=== PATIENT | male | born 1930 | race Caucasian/White ===

== ENCOUNTER 2017-08-11 19:24 | Inpatient (IN) | payer MEDICARE ==
[2017-08-11] MEDS ORDERED: Ondansetron HCl/PF 4 MG/2 ML Vial ONE (19:41)
[2017-08-11 19:51] LABS: #Eosinphils 0.1 thou/uL (0.0-0.7); #Lymphocytes 0.8 thou/uL (1.20-3.40); #Monocytes 0.8 thou/uL (0.11-0.59); #Neutrophils 12.1 thou/uL (1.40-6.50); %Basophils 0.3 % (0.0-1.0); %Eosinophils 0.9 % (0.0-10.0); %Lymphocytes 5.6 % (21.0-51.0); %Monocytes 5.6 % (0.0-10.0); Hematocrit 35.7 % (42.0-52.0); Mean Platelet Volume 7.4 fL (7.4-10.4); Red Blood Cell (RBC) Count 3.66 mill/uL (4.70-6.10); White Blood Cell (WBC) Count 13.8 thou/uL (4.8-10.8)
[2017-08-11 19:59] LABS: PTT 26.8 SEC (22.9-36.1); Prothrombin Time 14.4 SEC (12.0-14.7)
[2017-08-11 20:11] LABS: ALT (SGPT) 18 U/L (8-55); AST (SGOT) 19 U/L (5-34); Alkaline Phosphatase 46 U/L (40-150); Anion Gap 16 mmol/L (10-20); BUN (Urea Nitrogen) 30 mg/dL (8.4-25.7); Bilirubin, Total 0.6 mg/dL (0.2-1.2); Calc. Creatinine Clearance 0 mL/min (70-130); Calcium 9.4 mg/dL (7.8-10.44); Carbon Dioxide 21 mmol/L (23-31); Chloride 108 mmol/L (98-107); Estimated GFR-MDRD 49; Globulin 2.6 g/dL (2.4-3.5); Protein, Total 6.5 g/dL (5.8-8.1)
[2017-08-11] MEDS ORDERED: Ketorolac Tromethamine 30 MG/ML VIAL ONE (21:22)
--- NOTE | 2017-08-11 21:26 | RAD ---
LEFT HIP TWO VIEWS: History: 87-year-old male with left hip pain following a fall at home. FINDINGS: There is a fairly markedly displaced fracture through the base of the left femoral neck with some fo reshortening and varus deformity. Bony demineralization. IMPRESSION: Displaced foreshortened left femoral neck fracture. POS: JÚNIOR
[2017-08-11] MEDS ORDERED: Morphine Sulfate 2 MG/ML SYRINGE SLOW IVP PRN (21:32)
[2017-08-11] MEDS ORDERED: Ondansetron HCl/PF 4 MG/2 ML Vial IVP PRN (21:35)
[2017-08-11] MEDS ORDERED: Dextrose 5% in Water 1,000 ML IV PRN (21:35)
[2017-08-11] MEDS ORDERED: Dextrose 50% Abboject 50 ML SYRINGE SLOW IVP PRN (21:35)
[2017-08-11] MEDS ORDERED: Ondansetron ODT 4 MG TAB PO PRN (21:35)
[2017-08-11 21:50] LABS: Bilirubin Negative (Negative); Blood, Urine Trace (Negative); Glucose, Urine (Dipstick) Negative (Negative); Ketone, Urine 15 mg/dL (Negative); Nitrite Negative (Negative); Protein, Urine (Dipstick) Negative (Neg-Trace)
[2017-08-11 21:51] LABS: Bacteria/HPF None Seen HPF (None Seen); Hyaline Casts/LPF 0-3 HYALINE CAST LPF (0-3 Hyaline); Squamous Epithelial 0-3 HPF (0-3); WBC/HPF 0-3 HPF (0-3)
--- NOTE | 2017-08-11 21:55 | RAD ---
AP PELVIS ONE VIEW: History: 87-year-old male with trip and fall at home with left hip pain. FINDINGS: There is a displaced fracture through the base of the left femoral neck. Bone demineralization. No a cute pelvic fracture. IMPRESSION: Displaced fracture through the base of the left femoral neck. POS: MARIE
--- NOTE | 2017-08-11 21:56 | RAD ---
SEMI UPRIGHT PORTABLE CHEST: History: 87-year-old male with trip and fall at home with left hip fracture. FINDINGS: Heart size is normal. The lungs are clear. No confluent pneumonia, overt edema, or pleural effusion. Old granulomatous disease. IMPRESSION: Atherosclerosis of the aorta with some ectasia. Old granulomatous disease. No acute intrathoracic di sease. Stable from prior study. POS: JÚNIOR
[2017-08-11 23:27] VITALS: BMI 16.7
[2017-08-11] MEDS: Ketorolac Tromethamine 30 MG/ML VIAL IVP SCH (23:55)
[2017-08-11] MEDS: traMADol HCl 50 MG TAB PO SCH (23:56)
[2017-08-11] MEDS: Acetaminophen 500 MG TAB PO SCH (23:56)
[2017-08-12] MEDS: Sodium Chloride 0.9% 1,000 ML IV SCH ×2 (00:01→17:42)
--- NOTE | 2017-08-12 04:57 | HP ---
DATE OF ADMISSION: 08/11/2017 ATTENDING PHYSICIAN: Tapan Ochoa M.D. TRAUMA ACTIVATION: Not applicable. HISTORY OF PRESENT ILLNESS: Fox Rosas is an 87-year-old gentleman who presented to [facility] with a chief complaint of left hip pain. Per the patient, he was walking in his bathroom, slipped and fell, landing on his left side. He denies hitting his head or any loss of consciousness. He f urther denies any dizziness, vertigo, symptoms of syncope, chest pain, or shortness of breath prior to his accident. He was evaluated in the emergency room and found to have a left hip fracture. Upo n my evaluation, the patient has a chief complaint of left hip pain. Orthopedic Surgery was notifie d and Trauma Service was asked to admit. ALLERGIES: None. HOME MEDICATIONS: Include simvastatin 40 mg p.o. daily, Plavix 75 mg p.o. daily, Avodart 0.5 mg p.o . daily, Flomax 0.4 mg p.o. at bedtime. PAST MEDICAL HISTORY: Significant for TIA; aortic stenosis, most recently evaluated on echo earlier this year; and BPH. PAST SURGICAL HISTORY: Appendectomy. SOCIAL HISTORY: The patient lives independently. Ambulates independently or using a cane. Endorse s one martini daily. Denies tobacco or illicit drug use. FAMILY HISTORY: Noncontributory in this patient. REVIEW OF SYSTEMS: Negative except as indicated in the HPI. PHYSICAL EXAMINATION: VITAL SIGNS: On evaluation, blood pressure 137/83, heart rate of 104, O2 sat 95% on room air. GENERAL: A well-developed, elderly appearing male, in no acute distress, resting in bed. HEAD: Normocephalic, atraumatic. EYES: Pupils are PERRL. Extraocular movements are intact. NECK: Supple. Trachea is midline. C-spine is nontender to palpation. CHEST/PULMONARY: No tenderness to palpation. LUNGS: Clear to auscultation bilaterally. Normal work of breathing, symmetric rise. CARDIOVASCULAR: Regular rate and rhythm. He has a 2/6-3/6 systolic ejection murmur. There is no p edal edema. Pulses are 2+ bilaterally. BACK: Exam is reported as being within normal limits. MUSCULOSKELETAL: Bilateral upper extremities within normal limits. Right lower extremity is within normal limits. Left lower extremity is shortened and rotated. He is neurovascularly intact, dista l side of his injury. There is tenderness to palpation of the left hip. NEUROLOGIC: GCS 15. No focal deficit noted. GASTROINTESTINAL AND ABDOMEN: Soft, nontender, nondistended, atraumatic. LABORATORY FINDINGS: WBC 13.8, hemoglobin 12.7, hematocrit 35.7, platelet count at 233. INR is 1.1 . Sodium is 141, potassium 3.7, chloride 108, carbon dioxide 21, BUN 30, creatinine 1.39, glucose 1 03. AST and ALT are within normal limits. RADIOGRAPHIC FINDINGS: X-ray of the hip is significant for displaced, foreshortened left femoral ne ck fracture. Chest x-ray, official read is pending, demonstrates no acute cardiopulmonary process. Lungs are clear, somewhat hyperinflated, no acute traumatic injury noted. X-ray of the pelvis, off icial read is pending. EKG is pending. ASSESSMENT: 1. Status post mechanical ground-level fall. 2. Left femoral neck fracture. 3. Acute traumatic pain. 4. History of transient ischemic attack. 5. History of aortic stenosis. 6. History of benign prostatic hypertrophy. 7. Likely chronic kidney disease. Creatinine appears at baseline. PLAN: 1. Admit to Trauma Services. 2. Orthopedic Surgery will evaluate the patient and will determine plan for operative intervention. N.p.o. after midnight per Orthopedic Surgery request. A.m. labs. 3. Pain management. 4. Trauma attending has been notified of admission. 5. Plans for admission were discussed with the patient and family at bedside. They understand the plan for admission and vocalized no further questions at this time.
[2017-08-12] MEDS: traMADol HCl 50 MG TAB PO SCH ×3 (05:37→18:50)
[2017-08-12] MEDS: Acetaminophen 500 MG TAB PO SCH ×3 (05:37→17:41)
[2017-08-12] MEDS: Ketorolac Tromethamine 30 MG/ML VIAL IVP SCH ×3 (05:38→17:41)
[2017-08-12 06:29] LABS: #Eosinphils 0.2 thou/uL (0.0-0.7); #Lymphocytes 1.2 thou/uL (1.20-3.40); #Neutrophils 6.6 thou/uL (1.40-6.50); %Basophils 0.4 % (0.0-1.0); %Eosinophils 2.3 % (0.0-10.0); %Lymphocytes 13.7 % (21.0-51.0); %Monocytes 10.5 % (0.0-10.0); Hematocrit 32.9 % (42.0-52.0); Mean Platelet Volume 7.8 fL (7.4-10.4); Red Blood Cell (RBC) Count 3.33 mill/uL (4.70-6.10)
[2017-08-12 06:48] LABS: Anion Gap 11 mmol/L (10-20); BUN (Urea Nitrogen) 26 mg/dL (8.4-25.7); Calc. Creatinine Clearance 33 mL/min (70-130); Calcium 8.2 mg/dL (7.8-10.44); Carbon Dioxide 25 mmol/L (23-31); Chloride 109 mmol/L (98-107); Estimated GFR-MDRD 61; Phosphorus 3.4 mg/dL (2.3-4.7)
[2017-08-12] MEDS ORDERED: SODIUM CHLORIDE IVP SCH (07:45)
[2017-08-12] MEDS ORDERED: TRANEXAMIC ACID IVP SCH (07:45)
[2017-08-12] MEDS ORDERED: ADMIXTURE FEE IVP SCH (07:45)
--- NOTE | 2017-08-12 08:06 | CON ---
DATE OF CONSULTATION: 08/12/2017 ADMITTING DIAGNOSIS: Left hip pain. HISTORY OF PRESENT ILLNESS: Mr. Rosas is a pleasant 87-year-old male status post fall sustaining a left femoral neck fracture. The patient states that he had no chest pain, shortness of breath or a ny loss of consciousness, switched transitioning and moving. The patient has a previous history of a TIA. The patient had some weakness his left side. He is still actually active likely greater jeremiah n a community ambulator. He is currently rating his pain between 2-5/10, complaining of intermitten t discomfort in his left hip. The patient lives independently at home alone, his daughter is at bed side. PAST MEDICAL HISTORY: TIA, aortic stenosis, BPH, hyperlipidemia. PAST SURGICAL HISTORY: Appendectomy. MEDICATIONS: Simvastatin, Plavix, Avodart, Flomax. ALLERGIES: No known drug allergies. SOCIAL HISTORY: The patient lives independently, ambulates without any assist device. The patient drinks a cocktail once at night, previous smoking, but none for the last 10 years. No illicit drug use. 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 He is retired, lives in [place], [place]. REVIEW OF SYSTEMS: Negative. PHYSICAL EXAMINATION: VITAL SIGNS: This morning 97.7, 82, 18, 93%, 100/62. GENERAL: Alert and oriented male in no acute distress, resting comfortably in bed. Family at [facility]. EXTREMITIES: Left lower extremity, the patient has bunions of his left foot. He has no effusion in his knee, nontender to palpation. He has pain with internal and external rotation of his hip. He has no skin lesions, no wounds, no previous scars. He is neurovascularly intact distally. He has b risk cap refill. LABORATORY AND X-RAY FINDINGS: H\T\H 11 and 32. INR 1.1. Chemistry; creatinine of 1.14 and a nega tive UA. The patient has x-rays pelvis and hip showing a left femoral neck fracture. ASSESSMENT AND PLAN: The plan will be for placement of a left hip hemiarthroplasty. I discussed wi th the family the risks and benefits of surgery. I discussed the need for further procedures, long- term, continued pain, decreased range of motion or strength, need for further procedures, failure of procedure, damage to vital structures, risk of infection, scar, bleeding, loss of life or limb. Fa pancho and patient understand these risks and benefits, they understand. I discussed with them the op tions of both a total hip arthroplasty and hemiarthroplasty to the family. I decided upon a hemiart hroplasty as the treatment of choice. The patient will get TXA and antibiotics monorail operator to the OR. Patient is n.p.o. The plan will be done this afternoon.
--- NOTE | 2017-08-12 11:51 | PRG ---
DATE OF SERVICE: 08/12/2017 SUBJECTIVE: Mr. Rosas is an 87-year-old gentleman who is hospital day #2 for left hip fracture. H e is postop day #0. He localizes no complaints and states the pain has been well controlled overnig ht. He was cleared by Cardiology for surgery earlier this a.m. OBJECTIVE: VITAL SIGNS: Temperature 97.7, pulse 71, respirations 14, O2 sat 98% on room air, blood pressure 11 0/66. GENERAL: Well-developed elderly appearing male in no acute distress, resting in bed. PULMONARY: Normal work of breathing. LUNGS: Symmetric rise. CARDIOVASCULAR: Regular rate and rhythm, 3/6 systolic ejection murmur. GASTROINTESTINAL: Soft, nontender, nondistended. Bowel sounds are positive. MUSCULOSKELETAL: Moves all extremities x4, left lower extremity range of motion limited secondary t o pain. He is neurovascularly intact at distal side of his injury. NEUROLOGIC: No focal deficit noted. LABORATORY FINDINGS: WBC 9.0, hemoglobin 11.3, hematocrit 32.9, platelet count 189. Sodium 140, po tassium 4.7, chloride 109, carbon dioxide 25, BUN 26, creatinine 1.14, phosphorus 3.4, magnesium 2.0 . ASSESSMENT: 1. Status post fall. 2. Left femoral neck fracture. 3. History of transient ischemic attack. 4. History of aortic stenosis. PLAN: Patient to OR with ortho later today. Cardiology has cleared for surgery. We will follow po stoperatively. Postop pain management, PT, OT and pulmonary toilet. Patient seen and examined with Dr. Romeo.
[2017-08-12] MEDS ORDERED: HYDROcodone/Acetaminophen 5/325 mg Tablet ONE (12:35)
[2017-08-12] MEDS ORDERED: Ondansetron HCl/PF 4 MG/2 ML Vial ONE ×2 (12:36→13:46)
[2017-08-12] MEDS ORDERED: Tranexamic Acid 1,000 MG/100 ML BAG ONE ×2 (13:26→15:43)
[2017-08-12] MEDS ORDERED: Fentanyl 100 MCG/2 ML VIAL ONE ×2 (13:44→14:22)
[2017-08-12] MEDS ORDERED: Lidocaine 2% PF 10 ML AMP (For Epidural Use) ONE (13:46)
[2017-08-12] MEDS ORDERED: Glycopyrrolate 0.2 MG/ML 5 ML SYRINGE ONE (13:46)
[2017-08-12] MEDS ORDERED: Propofol 200 MG/20 ML VIAL ONE (13:46)
[2017-08-12] MEDS ORDERED: PHENYLEPHRINE-NS 100 MCG/ML 10 ML SYRINGE ONE (13:46)
[2017-08-12] MEDS ORDERED: ePHEDrine/0.9% NaCl/PF SYRINGE 50 mg/10 ml ONE (13:46)
[2017-08-12] MEDS ORDERED: Promethazine HCl 25 MG/ML VIAL SLOW IVP PRN (15:11)
[2017-08-12] MEDS ORDERED: Ondansetron HCl/PF 4 MG/2 ML Vial IVP PRN (15:11)
[2017-08-12] MEDS ORDERED: Promethazine HCl 25 MG/ML VIAL IM PRN (15:11)
[2017-08-12] MEDS ORDERED: Tranexamic Acid 1,000 MG in Sodium Chloride 0.9% 100 ML IVPB SCH (15:15)
--- NOTE | 2017-08-12 15:31 | CON ---
DATE OF CONSULTATION: 08/12/2017 INDICATION FOR CONSULTATION: An 87-year-old gentleman with left femoral neck fracture after a fall. Mr. Rosas is a very pleasant gentleman I have followed for many years. He does have a history of aortic valve stenosis which he has required over the last several years. He has been followed on a routine basis. He is completely asymptomatic. The last echocardiogram showed ejection fraction to be normal with moderate mitral valve regurgitation, mild mitral annular calcifications, and aortic valve area of 0.6 cm2, which is considered to be severe. However, this gentleman remains very active. He is still able to jog and up until 1-2 days before he fell, he was able to jog about 2 miles. He rides a bike on a routine basis through 4 times a week for a couple miles without any symptoms. He was in his bathroom when he made a sudden turn and fell and fractured his left hip with a left femoral neck fracture. He is already being seen by orthopedics. The plan is to proceed with orthopedic surgery this afternoon. At this time, he has no cardiac complaints. He has not had any cardiac catheterization. He has had stress testing many years ago, but no symptoms. He is asymptomatic when he is able to jog and ride his bicycle. PAST MEDICAL HISTORY: Significant for the valvular heart disease. He has also had a TIA in the past, but recent carotid Doppler study was unremarkable. He has benign prostatic hypertrophy. He had an appendectomy and tonsillectomy. He has hyperlipidemia. He does have some mild carotid plaque, the right being somewhat more than the left. ALLERGIES: None. MEDICATIONS: Include vitamin B12, Plavix 75 mg a day, and simvastatin 40 mg daily. REVIEW OF SYSTEMS: Unremarkable except for some discomfort noted in the left leg after the fracture. Otherwise, he is completely asymptomatic and has no other complaints on the review of system from the HEENT standpoint, pulmonary, GI, , or musculoskeletal. PHYSICAL EXAMINATION: GENERAL: Reveals a very thin, well-developed elderly gentleman, in no acute distress. VITAL SIGNS: Blood pressure is 110/66, heart rate is in the 50s and 80s and shows a sinus rhythm. He is afebrile. Respiratory rate is 14. HEENT: Shows head to be normocephalic and atraumatic. Carotid pulses are present. There is some radiation from the aortic area up into the carotids, but there is no evidence of carotid artery stenosis or bruits. CHEST: Clear to auscultation without rales, rhonchi or wheezing. CARDIOVASCULAR: Exam reveals a regular rate and rhythm with normal S1, S2. There is no S3 or S4. There were no significant bruits or rubs noted. He does have a systolic murmur over the aortic area 3/6 and also at the apex he has a systolic murmur 3-4/6, which radiates over the entire precordium. ABDOMEN: Soft and nontender with positive bowel sounds. No organomegaly or masses are noted. Femoral pulses are present. EXTREMITIES: Showed no clubbing, cyanosis or edema. Pedal pulses are also present. The left lower extremity is slightly externally rotated and shorter than the right due to his recent fracture. Otherwise, examination is unremarkable. NEUROLOGIC: The patient is intact. He appears to have normal strength and tone , but I cannot ascertain, he was not able to get out of the bed for further evaluation due to the hip fracture. SKIN: Warm and dry. LABORATORY DATA: Shows hemoglobin of 11.3, creatinine is 1.14, potassium of 4.7 , white blood cell count 9.0. I do not see an EKG in the chart, but his most recent EKG in the office was unremarkable. He showed a sinus rhythm in 2016 without evidence of acute changes and his last stress test was in 2007, his last Doppler study I have placed in the chart. IMPRESSION: 1. Elderly gentleman with a history of aortic valve stenosis and mitral valve regurgitation with a normal ejection fraction, who has had a fall who needs to undergo surgical repair of his left hip fracture or femur fracture, femoral neck fracture. Given his overall ability to continue to exercise the way he does at his age, I would suggest that we proceed with his surgical correction of the hip fracture, but to be very careful not to allow hypotension in this patient with his aortic valve stenosis. He also has severe aortic valve regurgitation, please note that also. 2. Hip fracture, which will be repaired this afternoon. 3. Aortic valve disease. He remains stable at this time despite having what appears to be severe aortic valve stenosis by echocardiogram. He has not had a cardiac catheterization as a definitive evaluation of the aortic valve due to his lack of symptoms. 4. History of benign prostatic hypertrophy. This also is remaining stable at this time. I will be more than happy to continue to follow the patient with you , but I suspect he will do well with his surgical procedure as long as the blood pressure is not allowed to become hypotensive. MARIANA
--- NOTE | 2017-08-12 16:03 | RAD ---
LEFT HIP 2 VIEWS: HISTORY: Postop total hip replacement. FINDINGS/IMPRESSION: There are recent postop changes of left femoral head prosthesis placement in good position and align ment since the exam of the previous day. POS: MARIE
[2017-08-12] MEDS ORDERED: Acetaminophen 325 MG TAB PO PRN (16:20)
[2017-08-12] MEDS ORDERED: D5 1/2 NS w/20 mEq KCL 1,000 ML IV SCH (16:20)
[2017-08-12] MEDS ORDERED: Bisacodyl 10 MG SUPP PR PRN (16:20)
[2017-08-12] MEDS ORDERED: Fentanyl 100 MCG/2 ML VIAL SLOW IVP PRN (16:20)
[2017-08-12] MEDS ORDERED: Milk Of Magnesia 30 ML UDCUP PO PRN (16:20)
[2017-08-12] MEDS ORDERED: Fleet Enema 133 ML BOT PR PRN (16:20)
[2017-08-12] MEDS ORDERED: Cepastat Lozenges 1 LOZ PO PRN (16:20)
[2017-08-12] MEDS: Senokot S 8.6-50 MG TAB PO SCH (20:32)
[2017-08-12] MEDS: Ferrous Gluconate 324 MG TAB PO SCH (20:32)
[2017-08-13] MEDS: Ketorolac Tromethamine 30 MG/ML VIAL IVP SCH ×2 (00:21→06:14)
[2017-08-13] MEDS: traMADol HCl 50 MG TAB PO SCH ×4 (00:27→17:37)
[2017-08-13] MEDS: Acetaminophen 500 MG TAB PO SCH ×4 (00:27→17:37)
--- NOTE | 2017-08-13 00:29 | OP ---
DATE OF PROCEDURE: 08/12/2017 PREOPERATIVE DIAGNOSIS: Left femoral neck fracture. POSTOPERATIVE DIAGNOSIS: Left femoral neck fracture. PROCEDURE PERFORMED: Left hip hemiarthroplasty. STAFF: Lalit Mobley M.D. PERMASTONE APPLICATOR: Ulices Robles PA-C. ANESTHESIA: Mike Ledbetter D.O. The patient received general endotracheal intubation. ESTIMATED BLOOD LOSS: 150 mL TOURNIQUET TIME: None. IMPLANTS: A [place] [employer] size 3 Accolade fracture stem with a 49 mm Unitrax head and a standard Unitrax sleeve. ANTIBIOTICS: Ancef 2 gram, TXA 1 gram. COMPLICATIONS: None. HISTORY OF PRESENT ILLNESS: Mr. Rosas is a pleasant 87-year-old male who is a community ambulator presented with left hip pain after a fall, has a history of a stroke and left side aortic stenosis. He is 87 years old and twisted and fell and broke his left hip. I discussed with the family and the patient the risks and benefits of a left hip hemiarthroplasty to include pain, scar, bleeding, infection, damage to vital structures, decreased range of motion or strength, nonunion, malunion, fracture, loss of life or limb. The family and the patient understood the risks and benefits of the procedure and elected to proceed. PROCEDURE IN DETAIL: After a timeout was performed, the patient's left lower extremity as the operative site based on sight, consents, and markings, the patient was placed in lateral decubitus position with his left hip positioned in lateral decubitus position for closure with his bony prominences well padded. The patient had an incision made down onto the IT band. The IT band was split. We then placed our Charnley retractor to expose the patient's gluteus medius. The gluteus medius was taken down, the capsule was T'd. We exposed the femoral head, which was removed and sized to a size 49. We then looked at the neck. We had a short neck cut. The calcar was almost completely intact. There was no crack extending into the lesser or down to the calcar, but there was a small portion of it posteriorly that had been chipped off. I felt the patient had a good position for a press fit. We then broached from a 0 up to a 3, had a good stable fixation at 3. We liked the overall length. We then trialed a 3 standard sleeve and a 49 head, good positioning and good overall length, so elected to position liner, we removed it, placed our final components and trialed and problems in high flexion, external rotation dislocation, had good overall alignment. We washed out, closed gluteus minimus and gluteus medius, closed the IT band with #2 Quill, 0 Quill, and 2-0 Quill, and glue. The patient will be weight bearing as tolerated. The patient will need the placement to half-way versus rehabilitation. The patient will be followed inhouse and received antibiotics, TXA and continues Plavix. MARIANA
[2017-08-13 05:18] LABS: Hematocrit 28.9 % (42.0-52.0); Mean Platelet Volume 7.5 fL (7.4-10.4); Red Blood Cell (RBC) Count 2.93 mill/uL (4.70-6.10); White Blood Cell (WBC) Count 7.1 thou/uL (4.8-10.8)
[2017-08-13 05:41] LABS: Anion Gap 12 mmol/L (10-20); BUN (Urea Nitrogen) 20 mg/dL (8.4-25.7); Calc. Creatinine Clearance 43 mL/min (70-130); Calcium 7.9 mg/dL (7.8-10.44); Carbon Dioxide 22 mmol/L (23-31); Chloride 108 mmol/L (98-107); Estimated GFR-MDRD 81; Magnesium 1.7 mg/dL (1.6-2.6); Phosphorus 3.2 mg/dL (2.3-4.7)
[2017-08-13] MEDS: Ferrous Gluconate 324 MG TAB PO SCH ×2 (08:05→20:07)
[2017-08-13] MEDS: Senokot S 8.6-50 MG TAB PO SCH ×2 (08:06→20:07)
[2017-08-13] MEDS: Multivitamin W/ Minerals 1 TAB PO SCH (08:06)
[2017-08-13] MEDS ORDERED: Magnesium 2 GM/NS 0.9% 100 ML 2 GM in Premix Bag 1 BAG IVPB SCH (08:45)
--- NOTE | 2017-08-13 09:31 | PDOC.CTH ---
Cardiology Progress Note - Subjective Pt. seen and evaluated. No cardiac complaints. No events from a cardiac standpoint during the periop period. Standing with PT. - Objective Vital Signs Temp Pulse Resp BP Pulse Ox 08/13/17 08:44 97.7 F 87 20 96 08/13/17 08:00 97.7 F 87 20 100/57 L 96 08/13/17 06:21 75 14 97 08/13/17 05:00 97.9 F 76 19 122/68 97 08/13/17 01:18 98.2 F 82 16 119/67 98 Admit Weight 110 lb Weight 110 lb 0.171 oz 08/12/17 08/13/17 08/14/17 06:59 06:59 06:59 Intake Total 920 800 Output Total 700 680 Balance 220 120 - Physical Examination General/Neuro: alert & oriented x3 Neck: carotid US brisk Lungs: CTA Heart: PMI normal, RRR Abdomen: no HSM, NT/ND Extremities: other: (surgical dressing in place on right hip area.) - Labs Result Diagrams: 08/13/17 05:03 08/13/17 05:03 - Assessment/Plan 1. postop after L hip replacement due to femoral neck fx. Able to stand with PT. 2. /AI: stable. Asymptomatic. 3. Anemia, postop. Follow. Overall cardiac status is stable. No new recommendations at this time. Review of Systems - Review of Systems EENTM: reports: no symptoms reported Respiratory: reports: no symptoms reported Cardiac (ROS): reports: no symptoms reported ABD/GI: reports: no symptoms reported Neurological: reports: no symptoms reported
[2017-08-13] MEDS ORDERED: Tamsulosin HCl 0.4 MG CAP PO SCH (10:15)
[2017-08-13] MEDS: Tamsulosin HCl 0.4 MG CAP PO SCH ×2 (10:51→20:07)
--- NOTE | 2017-08-13 13:37 | PRG-2 ---
DATE OF SERVICE: 08/13/2017 LOCATION: Surgery [id number]. SUBJECTIVE: Mr. Rosas is an 87-year-old man admitted for left hip fracture, now postop day #1 from a left hip hemiarthroplasty. The patient did well overnight, no acute events. Vital signs were st able. This morning, the patient said his pain was adequately controlled. He denied having a bowel movement yet. He stated that he had just gotten up and ambulated and was overall doing well. OBJECTIVE: VITAL SIGNS: Temperature 97.7 degrees Fahrenheit, pulse 87, respiratory rate 20, O2 sat 96% on room air and blood pressure 100/57. GENERAL: Alert and oriented x3. No acute distress. RESPIRATORY: No increased work of breathing. Equal rise and fall of the chest. CARDIOVASCULAR: Regular rate and rhythm. ABDOMEN: Soft, nondistended and nontender. GENITOURINARY: A Oneill in place, draining clear urine. LABORATORY DATA: White blood cell count 7.1, hemoglobin 9.9, hematocrit 28.9 and platelet 161. Chemistry: Sodium 137, potassium 4.5, chloride 108, bicarbonate 22, BUN 20, creatinine 0.89 and glu cose 91. ASSESSMENT: An 87-year-old man with a left femoral neck fracture due to fall, now status post left hip hemiarthroplasty. PLAN: The plan is to continue pain control and physical therapy with the patient. We will disconti nue the Oneill today and start Flomax to aid in patient's ability to urinate on his own. We will pro vide some fluids. The patient has severe aortic stenosis to also assist with helping patient urinat e on his own. We will provide a bowel regimen to help patient have a bowel movement today. Disposi tion for the patient will include inpatient rehabilitation. In regards to the bowel regimen, we ita l add MiraLax scheduled to patient's daily regimen. Dr. Romeo was present at bedside with this mikayla ent and agrees with the above assessment and plan.
[2017-08-13] MEDS ORDERED: Polyethylene Glycol 3350 17 GM Packet PO SCH (18:00)
[2017-08-14] MEDS: traMADol HCl 50 MG TAB PO SCH ×4 (00:01→18:43)
[2017-08-14] MEDS: Acetaminophen 500 MG TAB PO SCH ×4 (00:01→18:43)
[2017-08-14 05:24] LABS: Hematocrit 30.1 % (42.0-52.0); Mean Platelet Volume 7.9 fL (7.4-10.4); Red Blood Cell (RBC) Count 3.08 mill/uL (4.70-6.10)
[2017-08-14] MEDS: Senokot S 8.6-50 MG TAB PO SCH ×2 (08:26→20:24)
[2017-08-14] MEDS: Ferrous Gluconate 324 MG TAB PO SCH ×2 (08:26→20:24)
[2017-08-14] MEDS: Polyethylene Glycol 3350 17 GM Packet PO SCH (08:26)
[2017-08-14] MEDS: Multivitamin W/ Minerals 1 TAB PO SCH (08:26)
--- NOTE | 2017-08-14 09:42 | PDOC.CTH ---
<Arlyn Mckeon - Last Filed: 08/14/17 10:02> Cardiology Progress Note - Subjective The pt was seen and examined. No overnight events. No cardiac complaints. The pt has walked with PT this AM. Only complaint he has this AM was generalized weakness. - Objective Vital Signs Temp Pulse Resp BP Pulse Ox 08/14/17 09:33 98.6 F 87 12 94 L 08/14/17 08:00 98.6 F 87 12 121/78 94 L 08/14/17 06:57 79 18 92 L 08/14/17 04:00 97.6 F 83 16 148/84 H 96 08/14/17 00:00 98.4 F 83 12 123/73 93 L Admit Weight 110 lb Weight 110 lb 0.171 oz 08/13/17 08/14/17 08/15/17 06:59 06:59 06:59 Intake Total 800 600 Output Total 680 1525 Balance 120 -925 - Physical Examination General/Neuro: alert & oriented x3 Neck: no JVD present Lungs: CTA Heart: RRR Abdomen: soft Extremities: other: (No edema) - Labs Result Diagrams: 08/14/17 04:14 08/13/17 05:03 - Assessment/Plan 1. S/P Lt hip replacement due to femoral neck fx - stable. Able to stand with PT. managed by trauma team 2. Multpile Valuve disease - Severe /AI and mod MR with normal EF. stable. Asymptomatic. cont. monitor 3. BPH - managed by PCP 4. Anemia - slightly improved than yesterday; cont. monitor MAR reviewed Overall cardiac status is stable. No new recommendations at this time. Review of Systems - Review of Systems Constitutional: reports: no symptoms reported EENTM: reports: no symptoms reported Respiratory: reports: no symptoms reported Cardiac (ROS): reports: no symptoms reported ABD/GI: reports: no symptoms reported : reports: no symptoms reported Musculoskeletal: reports: see HPI <Esha Eden - Last Filed: 08/15/17 08:36> Cardiology Progress Note - Objective Vital Signs Temp Pulse Resp BP Pulse Ox 08/15/17 07:45 98.4 F 95 18 122/63 96 08/15/17 06:22 82 16 93 L 08/15/17 04:25 98.5 F 100 16 142/77 H 96 08/15/17 00:46 98.5 F 104 H 16 146/81 H 93 L Admit Weight 110 lb Weight 110 lb 0.171 oz 08/14/17 08/15/17 08/16/17 06:59 06:59 06:59 Intake Total 600 500 Output Total 1525 1450 Balance -466 -081 - Labs Result Diagrams: 08/15/17 05:26 08/15/17 05:26 - Assessment/Plan The pt. was seen and evaluated by me. I agree with the A/P. He is doing well from a cardiac standpoint post orthopedic surgery.I will sign off.If any changes please let me know and I will be happy to see him again.
--- NOTE | 2017-08-14 11:39 | PRG-2 ---
DATE OF SERVICE: 08/14/2017 CO-SIGNER: Dr. Ivan Romeo. SUBJECTIVE: Mr. Rosas is an 87-year-old man admitted for a left hip fracture, now postop day #2 wi th a left hip hemiarthroplasty. The patient did well overnight, no acute events, vital signs are st able. The patient said his pain was adequately controlled. The patient had his Oneill pulled yester day and patient is making urine, unclear what the postvoid residuals are the patient at this time. The patient has not had a bowel movement yet. OBJECTIVE: VITAL SIGNS: Temperature 98.6 degrees Fahrenheit, heart rate 87, respiratory rate 12, O2 sat 94% on room air, blood pressure 121/78. GENERAL: No acute distress, alert and oriented x3. CARDIOVASCULAR: A 3/6 systolic ejection murmur, regular rate and rhythm. RESPIRATORY: No increased work of breathing. Equal rise and fall of the chest. ABDOMEN: Soft, nondistended, nontender. GENITOURINARY: No Oneill in place. LABORATORY DATA: CBC: White blood cell count 9, hemoglobin 10.5, hematocrit 30.1, platelets 180. Chemistry: Sodium 137, potassium 4.5, chloride 108, bicarbonate 22, BUN 20, creatinine 0.89, glucos e 91. ASSESSMENT: He is an 87-year-old man with a left femoral neck fracture due to fall, status post lef t hip hemiarthroplasty, postop day #2. 1. Left femoral neck fracture, status post left hip hemiarthroplasty. 2. Aortic stenosis. 3. Benign prostatic hypertrophy. PLAN: We will continue patient's current pain regimen of Tylenol 1000 mg p.o. q.6 hours scheduled a nd tramadol 100 mg p.o. q.6 hours scheduled. We will continue and encourage physical therapy. Ciera ent currently has Dulcolax 10 mg scheduled, Milk of Magnesia 30 mL daily p.r.n., MiraLax 17 grams p. o. daily schedule and senna 2 tabs p.o. b.i.d. scheduled and a Fleet enema which is p.r.n. for const ipation. Plan is to get the patient to have a bowel movement. Additionally, the patient's Oneill wa s discontinued yesterday. Plan is to do a postvoid bladder scan after patient urinates today to guur aponte for retention. Patient does have a history of benign prostatic hypertrophy. Patient currentl y is taking tamsulosin 0.5 mg p.o. at night to assist with urinating. We will continue to monitor. We will get repeat labs in the morning of a CBC and BMP with magnesium and phosphatase. Overall, p nakul is to send the patient to a rehab facility for continued strength and improvement. The patient is pending placement at a rehab facility. Additionally, we will encourage p.o. intake. This patien t was seen at bedside with Dr. Ivan Romeo and he agrees with the above assessment and plan.
[2017-08-14] MEDS: Bisacodyl 10 MG SUPP PR SCH (18:43)
[2017-08-14] MEDS: Tamsulosin HCl 0.4 MG CAP PO SCH (20:24)
[2017-08-14] MEDS ORDERED: traMADol HCl 50 MG TAB PO PRN ×2 (23:44)
[2017-08-15] MEDS: Acetaminophen 500 MG TAB PO SCH ×4 (00:28→17:36)
[2017-08-15 05:57] LABS: Hematocrit 30.3 % (42.0-52.0); Mean Platelet Volume 7.5 fL (7.4-10.4); White Blood Cell (WBC) Count 8.6 thou/uL (4.8-10.8)
[2017-08-15 06:33] LABS: Anion Gap 17 mmol/L (10-20); BUN (Urea Nitrogen) 13 mg/dL (8.4-25.7); Calc. Creatinine Clearance 44 mL/min (70-130); Calcium 8.7 mg/dL (7.8-10.44); Carbon Dioxide 22 mmol/L (23-31); Chloride 98 mmol/L (98-107); Estimated GFR-MDRD 83; Magnesium 1.9 mg/dL (1.6-2.6); Phosphorus 2.3 mg/dL (2.3-4.7)
[2017-08-15] MEDS: Polyethylene Glycol 3350 17 GM Packet PO SCH (08:22)
[2017-08-15] MEDS: Ferrous Gluconate 324 MG TAB PO SCH ×2 (08:22→21:24)
[2017-08-15] MEDS: Senokot S 8.6-50 MG TAB PO SCH ×2 (08:22→21:25)
[2017-08-15] MEDS: Bisacodyl 10 MG SUPP PR SCH (08:22)
[2017-08-15] MEDS: Multivitamin W/ Minerals 1 TAB PO SCH (08:22)
--- NOTE | 2017-08-15 11:36 | PRG-2 ---
DATE OF SERVICE: 08/15/2017 LOCATION: Surgery A 3[facility]-P SUBJECTIVE: An 87-year-old man admitted for a left hip fracture secondary to fall, now postop day #3 from a left hip hemiarthroplasty. The patient did well overnight. The patient received tamsulosin last night. A bladder scan was performed. A postvoid bladder scan was performed this morning. The patient has 240 residual urine left in his bladder. The patient said his pain is adequately controlled. The patient's vital signs were stable overnight. The patient has not had a bowel movement yet. The patient has been accepted by Rehab here in [facility]. Patient is waiting on a bed available. OBJECTIVE: VITAL SIGNS: Temperature 98.4 degrees Fahrenheit, pulse 95, respiratory rate 18 , O2 sat 96% on room air, blood pressure 122/63. GENERAL: No acute distress, alert and oriented x3. CARDIOVASCULAR: A 3/6 systolic ejection murmur. Regular rate and rhythm. RESPIRATORY: No increased work of breathing. Equal rise above the chest. ABDOMEN: Soft, nondistended, nontender. GENITOURINARY: No Oneill in place. LABORATORY DATA: White blood cell count 8.6, hemoglobin 10.3, hematocrit 30.3, platelets 213. Chemistry: Sodium 133, potassium 4.1, chloride 98, bicarbonate 22, BUN 13, creatinine 0.7, glucose 76. ASSESSMENT: An 87-year-old man with left femoral neck fracture secondary to fall, status post left hip hemiarthroplasty, postop day #3. 1. Left femoral neck fracture status post left hip hemiarthroplasty. 2. Aortic stenosis. 3. Benign prostatic hypertrophy. 4. Hyponatremia. PLAN: 1. The patient has been accepted by a rehab facility here at [facility]. Patient is pending bed availability. We will continue the patient's current pain regimen and encourage physical therapy. 2. The patient was mildly hyponatremic today on labs. We will encourage p.o. intake. 3. We will continue the patient's current bowel regimen with a goal of the patient having a bowel movement today. 4. The patient's Oneill was discontinued yesterday and the patient urinated on his own this morning and had a bladder scan which showed a postvoid residual 250 mL We will continue tamsulosin at night for this patient's BPH. Dr Romeo was at bedside this morning and agrees with the above assessment and plan. MTDD
[2017-08-15] MEDS: Tamsulosin HCl 0.4 MG CAP PO SCH (21:24)
[2017-08-16] MEDS: Acetaminophen 500 MG TAB PO SCH ×2 (00:17→05:37)
[2017-08-16 08:23] VITALS: BP 135/71; TEMP 98.2
[2017-08-16] MEDS: Multivitamin W/ Minerals 1 TAB PO SCH (09:00)
[2017-08-16] MEDS: Ferrous Gluconate 324 MG TAB PO SCH (09:00)
[2017-08-16] MEDS: Senokot S 8.6-50 MG TAB PO SCH (09:03)
[2017-08-16] MEDS: Polyethylene Glycol 3350 17 GM Packet PO SCH (09:03)
[2017-08-16] MEDS: Bisacodyl 10 MG SUPP PR SCH (09:03)
== END 2017-08-16 12:15 | DRG 470 ==
LOC: ERS 19:24 → SURG A 21:35
PROVIDERS: ADMIT Specialist; ATTEND Specialist
PROC: 0SRS0JA Replacement of Left Hip Joint, Femoral Surface with Synthetic Substitute, Uncemented, Open Approach (ICD-10-PCS; principal; 2017-08-12)
DX: S72.042A Displaced fracture of base of neck of left femur, initial encounter for closed fracture (principal); E87.1 Hypo-osmolality and hyponatremia; D64.9 Anemia, unspecified; N40.0 Benign prostatic hyperplasia without lower urinary tract symptoms; I08.0 Rheumatic disorders of both mitral and aortic valves; Z86.73 Personal history of transient ischemic attack (TIA), and cerebral infarction without residual deficits; W19.XXXA Unspecified fall, initial encounter; Y92.002 Bathroom of unspecified non-institutional (private) residence as the place of occurrence of the external cause
CPT/HCPCS: 36415; 51702; 71010; 72170; 80048; 80053; 81003; 81015; 83735; 84100; 85025; 85027; 85610; 85730; 86850; 86900; 86901; 87086; 93005; 93010; 94640; 96361; 96374; 96375; 96376; G0390; G8978-GP-CL; G8979-GP-CJ; G8987-GO-CK; G8988-GO-CH; J0131; J1885; J2001; J2270; J2405; J2704; J3010; J3475; J7620

== ENCOUNTER 2017-12-30 07:10 | Inpatient (IN) | payer MEDICARE ==
[2017-12-30 07:39] LABS: #Basophils 0.1 thou/uL (0.0-0.2); #Eosinphils 0.2 thou/uL (0.0-0.7); #Lymphocytes 1.1 thou/uL (1.20-3.40); #Monocytes 0.7 thou/uL (0.11-0.59); #Neutrophils 3.8 thou/uL (1.40-6.50); %Basophils 1.1 % (0.0-1.0); %Lymphocytes 19.4 % (21.0-51.0); %Monocytes 11.2 % (0.0-10.0); %Neutrophils 65.3 % (42.0-75.0); Hemoglobin 11.3 g/dL (14.0-18.0); Mean Corpuscular HGB CONC 34.1 g/dL (32.0-36.0); Mean Corpuscular Volume 93.8 fl (80.0-94.0); Platelet Count 289 thou/uL (130-400); RBC Distribution Width 12.5 % (11.5-14.5); Red Blood Cell (RBC) Count 3.52 mill/uL (4.70-6.10); White Blood Cell (WBC) Count 5.9 thou/uL (4.8-10.8)
[2017-12-30 08:01] LABS: ALT (SGPT) 12 U/L (8-55); AST (SGOT) 15 U/L (5-34); Albumin 3.7 g/dL (3.4-4.8); Alkaline Phosphatase 54 U/L (40-150); Anion Gap 13 mmol/L (10-20); BUN (Urea Nitrogen) 29 mg/dL (8.4-25.7); Bilirubin, Total 0.5 mg/dL (0.2-1.2); Calc. Creatinine Clearance 0 mL/min (70-130); Calcium 8.9 mg/dL (7.8-10.44); Carbon Dioxide 24 mmol/L (23-31); Chloride 107 mmol/L (98-107); Estimated GFR-MDRD 55; Globulin 2.4 g/dL (2.4-3.5); Glucose 82 mg/dL (83-110); Potassium 3.9 mmol/L (3.5-5.1); Protein, Total 6.1 g/dL (5.8-8.1); Sodium 140 mmol/L (136-145)
--- NOTE | 2017-12-30 08:29 | RAD ---
CHEST 1 VIEW: Date: 12/30/17 HISTORY: Weakness. COMPARISON: None. FINDINGS: Lungs are clear. No pneumothorax or effusion. Cardiac silhouette and mediastinal contours within norm al limits. No acute osseous abnormality. IMPRESSION: No acute intrathoracic abnormality. POS: [facility]
[2017-12-30 08:30] LABS: CKMB 4.3 ng/mL (0-6.6); Troponin I 0.097 ng/mL (< 0.028)
--- NOTE | 2017-12-30 10:01 | CT ---
CT OF THE BRAIN WITHOUT CONTRAST: Date: 12/30/17 COMPARISON: 08/24/17. HISTORY: Left-sided weakness and twitching of legs. TECHNIQUE: Multiple contiguous axial images were obtained in a CT of the brain without contrast. FINDINGS: There are diffuse scattered hypodensities in the subcortical and periventricular white matter, likely secondary to small vessel ischemic disease. No new large confluent infarction is seen. There is no e vidence of hydrocephalus, intracranial hemorrhage, or extra-axial fluid collection. The calvarium and overlying soft tissues are unremarkable. The visualized paranasal sinuses and masto id air cells are well aerated. IMPRESSION: No evidence of acute intracranial abnormality. POS: [facility]
[2017-12-30 12:18] LABS: Troponin I 2.545 ng/mL (< 0.028)
[2017-12-30 12:48] LABS: Magnesium 2.3 mg/dL (1.6-2.6); Phosphorus 3.4 mg/dL (2.3-4.7)
[2017-12-30] MEDS ORDERED: Calcium Carbonate 500 MG ChewTAB PO PRN (13:02)
[2017-12-30] MEDS ORDERED: Senokot 8.6 MG TAB PO PRN (13:02)
[2017-12-30] MEDS ORDERED: Ondansetron HCl/PF 4 MG/2 ML Vial IVP PRN (13:02)
[2017-12-30] MEDS ORDERED: Ondansetron ODT 4 MG TAB PO PRN (13:02)
[2017-12-30] MEDS ORDERED: Nitroglycerin 0.4 MG TAB (25 Tab Bottle) PO PRN (13:02)
[2017-12-30] MEDS ORDERED: Acetaminophen 325 MG TAB PO PRN (13:02)
[2017-12-30] MEDS ORDERED: Milk Of Magnesia 30 ML UDCUP PO PRN (13:02)
--- NOTE | 2017-12-30 13:10 | HP ---
DATE OF ADMISSION: 12/30/2017 PRIMARY CARE PHYSICIAN: Dr. Gabriel. PRIMARY CARDIAC NURSE: Dr. Eden. CHIEF COMPLAINT: Generalized weakness. HISTORY OF PRESENT ILLNESS: Patient is an 87-year-old male with severe aortic stenosis and mitral va lve regurgitation, presented to the emergency room by EMS with generalized weakness. The patient woke up this morning and felt weak and lightheaded. He was scheduled to get an echocardi ogram this morning around 8:00 a.m. He also had some shortness of breath along with some chest tight ness. The chest tightness was radiating to his neck. His orthostatic vitals were positive by EMS. He received 500 mL of IV normal saline by EMS. He was then transferred to this facility for hospital admission. He denies recent immobilization, travel, fever, chills, or sick contacts. PAST MEDICAL HISTORY: 1. History of TIA, currently on Plavix. 2. Severe aortic stenosis. 3. Mitral regurgitation. 4. Benign prostatic hypertrophy. 5. Chronic kidney disease stage 2. 6. History of fall in 08/2017 with left femoral neck fracture status post left hip hemiarthroplasty. 7. Hyperlipidemia. PAST SURGICAL HISTORY: 1. Hip surgery as discussed above. 2. Appendectomy. ALLERGIES: No known drug allergies. CURRENT MEDICATIONS: Plavix 75 mg daily, Avodart 0.5 mg daily, Zocor 40 mg at bedtime, Flomax 0.4 mg at bedtime. SOCIAL HISTORY: Patient currently lives at home. Denies any smoking, alcohol or drug use. Has [employer]. Has good family support. He makes his own decisions with the help of his family. FULL CODE. FAMILY HISTORY: Negative for premature coronary artery disease. REVIEW OF SYSTEMS: The following complete review of systems was negative, unless otherwise mentioned in the HPI or below: Constitutional: Weight loss or gain, ability to conduct usual activities. Skin: Rash, itching. Eyes: Double vision, pain. ENT/Mouth: Nose bleeding, neck stiffness, pain, tenderness. Cardiovascular: Palpitations, dyspnea on exertion, orthopnea. Respiratory: Shortness of breath, wheezing, cough, hemoptysis, fever or night sweats. Gastrointestinal: Poor appetite, abdominal pain, heartburn, nausea, vomiting, constipation, or diarr hea. Genitourinary: Urgency, frequency, dysuria, nocturia. Musculoskeletal: Pain, swelling. Neurologic/Psychiatric: Anxiety, depression. Allergy/Immunologic: Skin rash, bleeding tendency. PHYSICAL EXAMINATION: VITAL SIGNS: Temperature 97.5, respirations 18, pulse rate of 83. Lowest blood pressure in the [facility] room was 93/61. His current blood pressure is 111/60, O2 saturation 98% on room air. GENERAL: An 87-year-old male, ill appearing. Feels generally weak. HEENT: Head is atraumatic, normocephalic. Sclerae are anicteric. Dry mucous membranes, no oral les ion. NECK: Supple, no JVD appreciated. No carotid bruit. LUNGS: Essentially clear to auscultation bilaterally. No wheezing, rales or rhonchi. HEART: S1 and S2 present, 4/6 systolic ejection murmur over the aortic area. No heaves or pulsation . ABDOMEN: Soft, nontender, bowel sounds present. EXTREMITIES: No edema or calf tenderness. NEUROLOGIC: Grossly nonfocal. Moves all four extremities. Power was 5/5 in all extremities. PSYCHIATRIC: Alert, awake, oriented x3. SKIN: Warm and dry. LYMPH NODES: No palpable lymph nodes in the neck. PERIPHERAL VASCULAR: Radial pulses palpable bilaterally. MUSCULOSKELETAL: No joint swelling or tenderness. SKIN: Warm and dry. LABORATORY DATA AND IMAGING DATA: 1. CBC showed WBC of 5.9 with hemoglobin of 11.3, hematocrit 33.1, platelet of 289. 2. Chemistries showed sodium 140, potassium 3.9, chloride 107, bicarbonate 24, BUN 29, creatinine 1. 24, and glucose of 82. 3. Troponin of 0.097 with repeat troponin 2.54. 4. Chest x-ray by my review was negative for infiltrate. 5. CT scan of the brain by my review was negative for acute findings. 6. EKG by my review showed sinus rhythm without significant ST-T wave changes. IMPRESSION: 1. Generalized weakness, probably secondary to symptomatic aortic stenosis with non-ST elevation mati cardial infarction. 2. Non-ST elevation myocardial infarction, probably secondary to coronary artery disease versus lillian nary hypoperfusion from orthostatic hypotension. 3. Orthostatic hypotension by EMS, responded to IV fluids. 4. Benign prostatic hypertrophy on Flomax and finasteride. 5. Hyperlipidemia on statins. 6. History of TIA on Plavix. 7. History of mitral regurgitation. 8. Chronic kidney disease stage 2 with prerenal azotemia, probably from dehydration. 9. Elevated troponin secondary to reasons discussed above. 10. Chronic anemia. PLAN: The patient will be monitored in the telemetry unit as inpatient admit. Cardiology will be co nsulted. Serial cardiac enzymes will be drawn. We will continue IV fluids. We will continue Plavix and add low dose aspirin. Continue statins, Flomax and Avodart. We will keep him n.p.o. past midni ght. We will avoid addition of beta blockers or NAMITA inhibitor due to severe aortic stenosis. IV flu ids. Fall precautions. Vital signs every 4 hourly. Plan of care was discussed with the patient and the family at the bedside. They stated understanding .
[2017-12-30] MEDS ORDERED: Enoxaparin Sodium 40 MG/0.4 ML SYRINGE ONE (13:33)
[2017-12-30] MEDS ORDERED: Clopidogrel Bisulfate 75 MG TAB ONE (13:33)
[2017-12-30] MEDS ORDERED: Aspirin 325 MG TAB ONE (13:33)
[2017-12-30] MEDS ORDERED: Tamsulosin HCl 0.4 MG CAP PO SCH (21:00)
[2017-12-30] MEDS ORDERED: Atorvastatin Calcium 20 MG TAB PO SCH (21:00)
[2017-12-30] MEDS ORDERED: Communication Order-Pharmacy FS SCH (23:15)
[2017-12-31] MEDS: Sodium Chloride 0.9% 1,000 ML IV SCH ×2 (00:32)
[2017-12-31] MEDS: Famotidine 20 MG TAB PO SCH ×2 (00:34→06:07)
[2017-12-31] MEDS: Docusate 100 MG CAP PO SCH ×2 (00:34→06:08)
--- NOTE | 2017-12-31 01:03 | CON ---
DATE OF CONSULTATION: 12/30/2017 REASON FOR CONSULTATION: Near syncopal episode, slightly increased troponin level. PATIENT OF: Noemy Eden M.D. HISTORY OF PRESENT ILLNESS: Mr. Rosas is an 87-year-old patient of Dr. Carlos Eden. He presented wit h generalized weakness, lightheadedness. He had weakness and lightheadedness and some shortness of b reath and some chest tightness and ultimately called EMS, was found to be hypotensive. He received n ormal saline 500 mL and transferred to [facility]. PAST MEDICAL HISTORY: 1. TIAs. 2. Severe aortic stenosis. 3. Mitral regurgitation. 4. Chronic kidney disease stage II. PAST SURGICAL HISTORY: Hip surgery. ALLERGIES: None known. MEDICATIONS: 1. Plavix. 2. Avodart. 3. Zocor 4. Flomax. SOCIAL HISTORY: Lives at home. No alcohol or tobacco use. REVIEW OF SYSTEMS: Constitutional: No significant weight gain or loss. Vision: No changes. Hearing: No changes. Pu lmonary: No cough or wheezing. Gastrointestinal: No nausea, vomiting, diarrhea. Skin: No rashes. Neurologic: No unilateral weakness or numbness. Psychiatric: No unusual depression or anxiety. PHYSICAL EXAMINATION: GENERAL: A pleasant elderly gentleman, mildly confused, but oriented easily. VITAL SIGNS: Blood pressure initially was low at 93/61 and later 111/60, pulse 70s. HEENT: Eyes, sclerae nonicteric. Mouth mucous membranes moist. NECK: Supple, no lymphadenopathy. LUNGS: Clear, no wheezing, rales or rhonchi. CARDIAC: Normal S1, normal S2. There is a 3/6 apical systolic murmur, also 2-3/6 murmur along the l eft midsternal border. ABDOMEN: Soft, nontender. EXTREMITIES: No clubbing, no cyanosis. There is no edema. SKIN: Warm and dry. PSYCHIATRIC: Mood and affect normal. NEUROLOGIC: Grossly normal. Hemoglobin is 11.3, troponin level 2.545. ASSESSMENT: 1. Severe aortic stenosis. 2. Non-ST elevation infarction with no EKG changes and no chest pain. PLAN: 1. He received enoxaparin 40 mg. This may have been orthostatic hypotension resulting in demand isc hemia. 2. He is receiving intravenous fluids. 3. Dr. Eden to recheck patient tomorrow. Echocardiogram I believe was also ordered with no other in tervention indicated at this point.
[2017-12-31] MEDS ORDERED: Prevnar 13-Val Conj/PF 0.5 ML SYRINGE IM ONE (01:45)
[2017-12-31 05:39] LABS: #Basophils 0.1 thou/uL (0.0-0.2); #Eosinphils 0.2 thou/uL (0.0-0.7); #Lymphocytes 1.3 thou/uL (1.20-3.40); #Monocytes 0.6 thou/uL (0.11-0.59); #Neutrophils 4.2 thou/uL (1.40-6.50); %Basophils 1.1 % (0.0-1.0); %Eosinophils 3.7 % (0.0-10.0); %Lymphocytes 19.6 % (21.0-51.0); %Neutrophils 65.7 % (42.0-75.0); Hemoglobin 10.3 g/dL (14.0-18.0); Mean Corpuscular HGB CONC 33.8 g/dL (32.0-36.0); Mean Corpuscular Volume 94.7 fl (80.0-94.0); Mean Platelet Volume 7.5 fL (7.4-10.4); Platelet Count 244 thou/uL (130-400); RBC Distribution Width 12.7 % (11.5-14.5); Red Blood Cell (RBC) Count 3.21 mill/uL (4.70-6.10); White Blood Cell (WBC) Count 6.4 thou/uL (4.8-10.8)
[2017-12-31 06:05] LABS: Critical Call Chem Troponin I RESULT DECREASING; Troponin I 1.031 ng/mL (< 0.028)
[2017-12-31 06:22] LABS: Albumin 3.2 g/dL (3.4-4.8); Anion Gap 10 mmol/L (10-20); BUN (Urea Nitrogen) 22 mg/dL (8.4-25.7); BUN/Creatinine Ratio 23.91; Calc. Creatinine Clearance 44 mL/min (70-130); Calcium 8.1 mg/dL (7.8-10.44); Carbon Dioxide 24 mmol/L (23-31); Chloride 109 mmol/L (98-107); Estimated GFR-MDRD 78; Glucose 85 mg/dL (83-110); Phosphorus 2.5 mg/dL (2.3-4.7); Sodium 139 mmol/L (136-145)
[2017-12-31 08:51] VITALS: BMI 17.9
[2017-12-31] MEDS ORDERED: Dutasteride 0.5 MG CAP PO SCH (09:00)
[2017-12-31] MEDS ORDERED: Aspirin 81 mg Enteric Coated Tablet PO SCH (09:00)
[2017-12-31] MEDS ORDERED: Clopidogrel Bisulfate 75 MG TAB PO SCH (09:00)
[2017-12-31] MEDS ORDERED: Acetaminophen/Codeine 30-300mg Tablet PO PRN ×2 (11:26)
[2017-12-31] MEDS ORDERED: Nitroglycerin 0.4 MG TAB (25 Tab Bottle) SL PRN (11:26)
[2017-12-31] MEDS ORDERED: traMADol HCl 50 MG TAB PO PRN (11:26)
[2017-12-31] MEDS ORDERED: Sodium Chloride 0.9% 200 ML IV SCH (11:26)
[2017-12-31 11:51] VITALS: TEMP 98
[2017-12-31] MEDS ORDERED: Iopamidol 370 76% 100 ML VIAL ONE (11:55)
[2017-12-31 17:48] VITALS: BP 128/67
--- NOTE | 2017-12-31 17:57 | PDOC.EVN ---
Event Note - Event Note Event Note: Elevated troponins due to demand ischemia.
--- NOTE | 2017-12-31 18:23 | DIS ---
DATE OF DISCHARGE: 12/31/2017 DISCHARGE DISPOSITION: Home. FOLLOWUP: 1. Follow up with primary care physician, Dr. Gabriel in 1 week. 2. Follow up with Dr. Eden in 1-2 weeks. The patient was seen and examined on the day of discharge and denies any new complaints. No chest pa in, shortness of breath, palpitations. DISCHARGE MEDICATIONS: Same as admission medications. Plavix 75 mg daily, Zocor 40 mg at bedtime, F rosales 0.4 mg at bedtime, and Avodart 0.5 mg daily. INPATIENT PROCEDURES: The patient underwent cardiac catheterization today that showed minimal ambrocio ry artery disease with severe aortic stenosis. BRIEF HOSPITAL COURSE: The patient is an 87-year-old white male with severe aortic stenosis and mitr al valve regurgitation, presented to the emergency room with generalized weakness. Please refer to t he history and physical dated 12/30/2017 for further details. The patient was admitted to the telemetry unit with a diagnosis of symptomatic aortic stenosis with g eneralized weakness. He was found to have elevated troponin, maximum troponin was 2.6. He underwent cardiac catheterization earlier today as discussed above. The patient has been cleared by Cardiolog y for discharge. His elevated troponins were probably secondary to severe aortic stenosis/demand isc hemia. FINAL DIAGNOSES: 1. Generalized weakness secondary to symptomatic aortic stenosis. 2. Elevated troponin secondary to demand ischemia. 3. Orthostatic hypotension by EMS that responded to IV fluids. 4. Benign prostatic hypertrophy. 5. Hyperlipidemia. 6. History of transient ischemic attack on Plavix. 7. History of mitral regurgitation. 8. Chronic kidney disease, stage 2. 9. Chronic anemia. 10. Advanced age. Plan of care was discussed with the patient and the family at the bedside. They stated understanding .
== END 2017-12-31 17:53 | disposition home or self-care (01) | DRG 287 ==
LOC: ERS 07:10 → ERHOLD 11:19 → 2NO 22:58
PROVIDERS: ADMIT Internal Medicine; ATTEND Internal Medicine
PROC: 4A023N7 Measurement of Cardiac Sampling and Pressure, Left Heart, Percutaneous Approach (ICD-10-PCS; principal; 2017-12-31)
PROC: B2111ZZ Fluoroscopy of Multiple Coronary Arteries using Low Osmolar Contrast (ICD-10-PCS; 2017-12-31)
PROC: B2151ZZ Fluoroscopy of Left Heart using Low Osmolar Contrast (ICD-10-PCS; 2017-12-31)
DX: I08.0 Rheumatic disorders of both mitral and aortic valves (principal); E86.0 Dehydration; I24.8 Other forms of acute ischemic heart disease; E78.5 Hyperlipidemia, unspecified; N18.2 Chronic kidney disease, stage 2 (mild); I25.10 Atherosclerotic heart disease of native coronary artery without angina pectoris; N40.0 Benign prostatic hyperplasia without lower urinary tract symptoms; I95.1 Orthostatic hypotension; I12.9 Hypertensive chronic kidney disease with stage 1 through stage 4 chronic kidney disease, or unspecified chronic kidney disease; Z96.642 Presence of left artificial hip joint; Z86.73 Personal history of transient ischemic attack (TIA), and cerebral infarction without residual deficits
CPT/HCPCS: 36415; 70450; 71045; 80053; 80069; 82533; 82553; 83735; 83880; 84100; 84484; 85025; 93005; 93306; 93458; 93567; 94760; 96360; 96361; 96372; C1769; J1644; J1650; J2270

== ENCOUNTER 2018-01-01 07:43 | Emergency (ER) | payer MEDICARE ==
[2018-01-01 08:38] LABS: #Basophils 0.1 thou/uL (0.0-0.2); #Lymphocytes 0.6 thou/uL (1.20-3.40); #Neutrophils 9.1 thou/uL (1.40-6.50); %Basophils 0.6 % (0.0-1.0); %Eosinophils 0.2 % (0.0-10.0); %Lymphocytes 5.8 % (21.0-51.0); %Monocytes 8.8 % (0.0-10.0); %Neutrophils 84.5 % (42.0-75.0); Hemoglobin 9.7 g/dL (14.0-18.0); Mean Corpuscular HGB CONC 32.9 g/dL (32.0-36.0); Mean Corpuscular Hemoglobin 30.7 pg (27.0-31.0); Mean Corpuscular Volume 93.3 fl (80.0-94.0); Mean Platelet Volume 6.8 fL (7.4-10.4); Platelet Count 232 thou/uL (130-400); RBC Distribution Width 12.4 % (11.5-14.5); Red Blood Cell (RBC) Count 3.16 mill/uL (4.70-6.10); White Blood Cell (WBC) Count 10.8 thou/uL (4.8-10.8)
[2018-01-01 08:44] LABS: INR-International Normal Ratio 1.1; PTT 30.3 SEC (22.9-36.1); Prothrombin Time 14.7 SEC (12.0-14.7)
--- NOTE | 2018-01-01 08:51 | CT ---
CT HEAD NONCONTRAST: History: Fall. Head injury. Comparison: 12-30-17 FINDINGS: There is no evidence of acute intracranial hemorrhage or infarct. The ventricles appear normal in siz e, shape, and position. Diffuse cortical atrophy and chronic ischemic small vessel disease are unchan ged. Calcification is present within the arterial structures at the brain base. Visualized paranasal sinuses remain well aerated. Scalp laceration overlies the left parietal calvarium. IMPRESSION: No acute intracranial traumatic injury is demonstrated. POS: [facility]
--- NOTE | 2018-01-01 08:52 | CT ---
CT CERVICAL SPINE NONCONTRAST: History: Fall, neck injury. FINDINGS: Vertebral body height and alignment maintained. Multilevel disc space narrowing and prominent osteoph ytosis are again demonstrated. No acute fracture or dislocation. Cervicothoracic junction is intact. IMPRESSION: Cervical spondylosis. No acute osseous abnormalities are demonstrated. POS: [facility]
--- NOTE | 2018-01-01 08:55 | CT ---
CT THORACIC SPINE NONCONTRAST: History: Fall, back injury. FINDINGS: Vertebral body heights are maintained. Minimal chronic appearing endplate depression at the T7 level is noted. No acute fracture or dislocation. There is disc space narrowing and osteophytosis throughou t the thoracic vertebrae. There is calcification in the arterial structures. Calcified mediastinal ly mph nodes are consistent with healed granulomatous disease. The inferior most images show lobular flu id density lesions at the hilum of each kidney having the appearance of parapelvic cysts. IMPRESSION: 1. Thoracic spondylosis. No acute osseous abnormalities are demonstrated. 2. Atherosclerosis. POS: [facility]
[2018-01-01 09:02] LABS: ALT (SGPT) 13 U/L (8-55); AST (SGOT) 27 U/L (5-34); Albumin 3.6 g/dL (3.4-4.8); Alkaline Phosphatase 64 U/L (40-150); Anion Gap 12 mmol/L (10-20); BUN (Urea Nitrogen) 15 mg/dL (8.4-25.7); Bilirubin, Total 0.8 mg/dL (0.2-1.2); CK (CPK) 530 U/L (30-200); Calc. Creatinine Clearance 0 mL/min (70-130); Calcium 8.6 mg/dL (7.8-10.44); Carbon Dioxide 24 mmol/L (23-31); Chloride 106 mmol/L (98-107); Estimated GFR-MDRD 76; Globulin 2.5 g/dL (2.4-3.5); Glucose 91 mg/dL (83-110); Potassium 4.5 mmol/L (3.5-5.1); Protein, Total 6.1 g/dL (5.8-8.1); Sodium 137 mmol/L (136-145)
[2018-01-01 09:09] LABS: CKMB 15.3 ng/mL (0-6.6); Troponin I 0.766 ng/mL (< 0.028)
[2018-01-01] MEDS ORDERED: Bacitracin Zinc 1 Packet ONE (10:53)
== END 2018-01-01 10:47 | disposition home or self-care (01) ==
LOC: ERS 07:43
DX: S01.01XA Laceration without foreign body of scalp, initial encounter (principal); E78.5 Hyperlipidemia, unspecified; N40.0 Benign prostatic hyperplasia without lower urinary tract symptoms; Z79.899 Other long term (current) drug therapy; W01.0XXA Fall on same level from slipping, tripping and stumbling without subsequent striking against object, initial encounter
CPT/HCPCS: 12001; 36415; 70450; 72125; 72128; 80053; 82553; 84484; 85025; 85610; 85730; 93005